=== PATIENT | female | born 1995 | race Caucasian/White ===

== ENCOUNTER 2018-04-04 14:17 | Inpatient (IN) | payer OTHER ==
[2018-04-04] MEDS ORDERED: LIDOCAINE 1% (MPF) 30 ML INJ INJ (15:00)
[2018-04-04] MEDS ORDERED: CARBOPROST 250 MCG INJ IM ×2 (15:00→23:00)
[2018-04-04] MEDS ORDERED: BUTORPHANOL 2 MG INJ IV (15:00)
[2018-04-04] MEDS ORDERED: MISOPROSTOL 200 MCG TAB PR ×2 (15:00→23:00)
[2018-04-04] MEDS ORDERED: METHYLERGONOVINE 0.2 MG INJ IM ×2 (15:00→23:00)
[2018-04-04] MEDS ORDERED: OXYTOCIN 30 UNITS/LR 500 ML IV ×3 (15:00→23:00)
[2018-04-04 15:07] LABS: ADD MAN DIFF? NO
[2018-04-04] MEDS: LACTATED RINGER'S 1,000 ML IV* (15:14)
[2018-04-04 15:24] LABS: WHITE BLOOD COUNT 11.8 10^3/ul (4.8-10.8)
[2018-04-04 15:24] LABS: BASOPHILS % 0.3 % (0.0-2.0); EOSINOPHILS # 0.1 10^3/ul (0.0-0.5); EOSINOPHILS % 0.4 % (0.0-7.0); HEMATOCRIT 32.8 % (37.0-47.0); HEMOGLOBIN 11.1 g/dl (12.0-16.0); LYMPHOCYTES # 2.5 10^3/ul (0.8-2.9); LYMPHOCYTES % 20.8 % (15.0-51.0); MEAN CORPUSCULAR HEMOGLOBIN 29.1 pg (29.0-33.0); MEAN CORPUSCULAR HGB CONC 33.8 g/dl (32.0-37.0); MEAN CORPUSCULAR VOLUME 85.9 fl (82.0-101.0); MEAN PLATELET VOLUME 11.2 fl (7.4-10.4); MONOCYTE # 0.5 10^3/ul (0.3-0.9); MONOCYTES % 4.1 % (0.0-11.0); NEUTROPHIL # 8.8 10^3/ul (1.6-7.5); NEUTROPHILS % 73.9 % (39.0-77.0); PLATELET COUNT 243 10^3/UL (140-415); RED BLOOD COUNT 3.82 10^6/ul (4.20-5.40); RED CELL DISTRIBUTION WIDTH 13.9 % (11.5-14.5)
[2018-04-04] MEDS ORDERED: MINERAL OIL LIGHT 10 ML VIAL TOP (15:30)
[2018-04-04 15:32] LABS: INR 0.91; PARTIAL THROMBOPLASTIN TIME 26.5 Sec (25.0-35.0); PROTIME 12.3 Sec (11.9-14.9)
[2018-04-04 16:04] LABS: HEPATITIS B SURFACE ANTIGEN NEGATIVE (NEGATIVE)
[2018-04-04] MEDS: BUTORPHANOL 2 MG INJ IV (16:56)
[2018-04-04] MEDS ORDERED: FENTAnyl 50 MCG/ML VIAL ×3 (18:27→19:10)
[2018-04-04] MEDS: CEFAZOLIN 2 GM/50 ML (PMX) 50 ML IVPB (18:30)
[2018-04-04] MEDS ORDERED: SUCCINYLCHOLINE CHLORIDE 100 MG/5 ML SYG IV (18:41)
[2018-04-04] MEDS ORDERED: ROCURONIUM 50 MG INJ (18:41)
[2018-04-04] MEDS ORDERED: PROPOFOL 20 ML (18:41)
[2018-04-04] MEDS ORDERED: CEFAZOLIN 1 GM INJ (18:41)
[2018-04-04] MEDS ORDERED: SUGAMMADEX SODIUM 200 MG/2 ML VIAL IV (18:41)
[2018-04-04] MEDS ORDERED: ONDANSETRON 4 MG INJ (18:44)
[2018-04-04] MEDS ORDERED: METOCLOPRAMIDE 10 MG INJ (18:44)
[2018-04-04] MEDS ORDERED: DEXAMETHASONE 4 MG/ML 1 ML INJ (18:44)
[2018-04-04] MEDS ORDERED: ROPIVACAINE 0.5 % 30 ML VIAL (18:44)
[2018-04-04] MEDS: OXYTOCIN 30 UNITS/LR 500 ML IV ×2 (19:35→23:36)
[2018-04-04] MEDS: FENTAnyl 50 MCG/ML VIAL IV ×4 (19:44→21:15)
[2018-04-04] MEDS ORDERED: HYDROmorphONE 1 MG/5 ML IV SYRINGE IV ×3 (20:00)
[2018-04-04] MEDS ORDERED: ONDANSETRON 4 MG INJ IV ×2 (20:00)
[2018-04-04] MEDS ORDERED: HYDROmorphONE 0.5 MG/0.5 ML SYG IV ×2 (20:00)
[2018-04-04] MEDS ORDERED: NALOXONE (0.4 MG/ML) INJ IV ×2 (20:00)
[2018-04-04] MEDS ORDERED: METOCLOPRAMIDE 10 MG INJ IV (20:00)
[2018-04-04] MEDS ORDERED: DIPHENHYDRAMINE 50 MG INJ IV ×2 (20:00)
[2018-04-04] MEDS ORDERED: ALBUTEROL 0.083% (NEB) 2.5 MG/3 ML AMP HHN (20:00)
[2018-04-04] MEDS ORDERED: FENTAnyl 50 MCG/ML VIAL IV ×2 (20:00)
[2018-04-04] MEDS: KETOROLAC 30 MG INJ IV (20:39)
[2018-04-04] MEDS: LACTATED RINGER'S 1,000 ML IV (22:31)
[2018-04-04] MEDS ORDERED: HYDROCODONE/APAP (5/325) TAB PO (23:00)
[2018-04-04] MEDS ORDERED: NA PHOSPHATE/BIPHOS 133 ML ENEMA PR (23:00)
[2018-04-04] MEDS: LANOLIN 7 GM TUBE TOP (23:30)
[2018-04-04] MEDS: CLINDAMYCIN 300 MG CAP PO (23:30)
[2018-04-05] MEDS: CEFAZOLIN 2 GM/50 ML (PMX) 50 ML IV ×3 (00:37→15:34)
[2018-04-05] MEDS: HYDROmorphONE 0.2 MG/ML PCA IV ×2 (00:42→12:16)
[2018-04-05] MEDS: LACTATED RINGER'S 1,000 ML IV ×3 (01:14→22:31)
[2018-04-05] MEDS: AZITHROMYCIN 500MG/NS (PMX) 250 ML IVPB (04:06)
[2018-04-05] MEDS: CLINDAMYCIN 300 MG CAP PO ×4 (05:44→23:58)
[2018-04-05] MEDS: SENNA/DOCUSATE NA (8.6MG/50MG) TAB PO ×2 (10:06→21:40)
[2018-04-05 10:16] LABS: ADD MAN DIFF? NO
[2018-04-05 10:21] LABS: BASOPHILS % 0.1 % (0.0-2.0); EOSINOPHILS % 0.1 % (0.0-7.0); HEMATOCRIT 22.9 % (37.0-47.0); HEMOGLOBIN 7.5 g/dl (12.0-16.0); LYMPHOCYTES # 2.5 10^3/ul (0.8-2.9); MEAN CORPUSCULAR HEMOGLOBIN 28.7 pg (29.0-33.0); MEAN CORPUSCULAR HGB CONC 32.8 g/dl (32.0-37.0); MEAN CORPUSCULAR VOLUME 87.7 fl (82.0-101.0); MEAN PLATELET VOLUME 11.4 fl (7.4-10.4); MONOCYTE # 0.9 10^3/ul (0.3-0.9); MONOCYTES % 6.3 % (0.0-11.0); PLATELET COUNT 184 10^3/UL (140-415); RED BLOOD COUNT 2.61 10^6/ul (4.20-5.40)
[2018-04-05 10:21] LABS: WHITE BLOOD COUNT 14.5 10^3/ul (4.8-10.8)
[2018-04-05] MEDS: KETOROLAC 30 MG INJ IV (15:31)
[2018-04-05 16:03] LABS: RHOGAM PROFILE 1 1
[2018-04-05] MEDS: BISACODYL 10 MG SUPP PR (17:54)
[2018-04-05 19:59] LABS: RAPID PLASMA REAGIN NONREACTIVE (NR)
[2018-04-05] MEDS: IBUPROFEN 800 MG TAB PO (21:40)
[2018-04-06] MEDS: CLINDAMYCIN 300 MG CAP PO ×3 (05:50→17:27)
[2018-04-06] MEDS: IBUPROFEN 800 MG TAB PO ×3 (05:50→21:59)
[2018-04-06] MEDS: LACTATED RINGER'S 1,000 ML IV ×3 (05:54→21:59)
[2018-04-06] MEDS: SENNA/DOCUSATE NA (8.6MG/50MG) TAB PO ×2 (08:46→21:00)
[2018-04-06 10:27] LABS: ADD MAN DIFF? NO
[2018-04-06 10:36] LABS: WHITE BLOOD COUNT 11.4 10^3/ul (4.8-10.8)
[2018-04-06 10:36] LABS: BASOPHILS % 0.2 % (0.0-2.0); EOSINOPHILS % 0.1 % (0.0-7.0); HEMATOCRIT 21.7 % (37.0-47.0); HEMOGLOBIN 7.2 g/dl (12.0-16.0); LYMPHOCYTES # 1.8 10^3/ul (0.8-2.9); LYMPHOCYTES % 15.7 % (15.0-51.0); MEAN CORPUSCULAR HEMOGLOBIN 29.1 pg (29.0-33.0); MEAN CORPUSCULAR HGB CONC 33.2 g/dl (32.0-37.0); MEAN CORPUSCULAR VOLUME 87.9 fl (82.0-101.0); MONOCYTE # 0.5 10^3/ul (0.3-0.9); MONOCYTES % 4.5 % (0.0-11.0); NEUTROPHILS % 79.1 % (39.0-77.0); PLATELET COUNT 182 10^3/UL (140-415); RED BLOOD COUNT 2.47 10^6/ul (4.20-5.40); RED CELL DISTRIBUTION WIDTH 14.1 % (11.5-14.5)
[2018-04-06] MEDS: OXYCODONE/ACETAMINOPHEN (5/325) TAB PO ×2 (15:26→22:38)
[2018-04-07] MEDS: CLINDAMYCIN 300 MG CAP PO ×3 (00:47→12:38)
[2018-04-07] MEDS: IBUPROFEN 800 MG TAB PO ×2 (06:01→14:30)
[2018-04-07] MEDS: LACTATED RINGER'S 1,000 ML IV (06:02)
[2018-04-07] MEDS: SENNA/DOCUSATE NA (8.6MG/50MG) TAB PO (09:00)
[2018-04-07] MEDS: MEASLES,MUMPS,RUBELLA VACCINE INJ SC* (09:00)
[2018-04-07] MEDS: DIPHTH/TET/ACEL PERTUSS (ADULT) 0.5 ML VIAL IM* (09:00)
[2018-04-07] MEDS: OXYCODONE/ACETAMINOPHEN (5/325) TAB PO (15:50)
== END 2018-04-07 18:14 | disposition home or self-care (01) | DRG 766 ==
LOC: OBT 14:17 → L-D 14:18 → OBT 14:30 → L-D 14:30 → PP1 22:33
PROVIDERS: Obstetrics & Gynecology
PROC: 10D00Z1 Extraction of Products of Conception, Low, Open Approach (ICD-10-PCS; principal; 2018-04-04 18:15)
PROC: 3E033VJ Introduction of Other Hormone into Peripheral Vein, Percutaneous Approach (ICD-10-PCS; 2018-04-04 18:15)
DX: O48.0 Post-term pregnancy (principal); Z3A.40 40 weeks gestation of pregnancy; O99.214 Obesity complicating childbirth; E66.01 Morbid (severe) obesity due to excess calories; Z68.38 Body mass index [BMI] 38.0-38.9, adult; O69.0XX0 Labor and delivery complicated by prolapse of cord, not applicable or unspecified; Z37.0 Single live birth
CPT/HCPCS: 85025; 85610; 85730; 86592; 86850; 86870; 86885; 86900; 86901; 87340; 99464